=== PATIENT | male | born 1945 | race Caucasian/White ===

== ENCOUNTER 2025-05-21 05:53 | Emergency (ER) | payer OTHER ==
[2025-05-21] MEDS ORDERED: Ondansetron PF 4 MG/2 ML Vial ONE (06:49)
[2025-05-21 06:58] LABS: Hematocrit 40.4 % (42.0-52.0); Hemoglobin 12.0 g/dL (14.0-18.0); Mean Corpuscular Hemoglobin 29.9 pg (27.0-31.0); Mean Corpuscular Volume 101.0 fl (78.0-98.0); Platelet Count 240 10x3/uL (130-400); Red Blood Cell (RBC) Count 4.00 mill/uL (4.70-6.10); White Blood Cell (WBC) Count 5.4 10x3/uL (4.8-10.8)
[2025-05-21] MEDS ORDERED: Amoxicillin/Potassium Clav 875 MG TAB ONE (07:03)
[2025-05-21 07:06] LABS: Anion Gap 16 mmol/L (10-20); Anisocytosis SLIGHT = 6-15 cells (100X) (0-5/hpf); BUN (Urea Nitrogen) 11 mg/dL (8.4-25.7); Calc. Creatinine Clearance 0 mL/min (70-130); Calcium 8.5 mg/dL (7.8-10.44); Carbon Dioxide 22 mmol/L (23-31); Chloride 108 mmol/L (98-107); Glucose 104 mg/dL (83-110); MDiff Complete? YES; Macrocytosis SLIGHT = 6-15 cells (100X) (0-5/hpf); Manual Diff?? YES; Potassium 3.7 mmol/L (3.5-5.1); Sodium 142 mmol/L (136-145)
[2025-05-21 07:07] LABS: Platelet Adequacy Comment Appears Adequate
== END 2025-05-21 07:40 | disposition home or self-care (01) ==
LOC: MADERS 05:53
DX: K57.32 Diverticulitis of large intestine without perforation or abscess without bleeding (principal); I10 Essential (primary) hypertension; E78.5 Hyperlipidemia, unspecified; E66.9 Obesity, unspecified; Z79.899 Other long term (current) drug therapy
CPT/HCPCS: 36415; 74176; 80048; 85025; 96374; 96375; J2270; J2405; J7030

== ENCOUNTER 2025-05-28 08:46 | Emergency (ER) | payer OTHER ==
[2025-05-28] MEDS ORDERED: Iopamidol 370 76% 100 ML VIAL ONE (09:00)
[2025-05-28] MEDS ORDERED: Orphenadrine Citrate 60 MG/2 ML VIAL ONE (09:59)
[2025-05-28 10:14] LABS: #Basophils 0.0 thou/uL (0.0-0.2); #Eosinophils 0.1 thou/uL (0.0-0.7); #Lymphocytes 0.7 thou/uL (1.20-3.40); #Monocytes 0.4 thou/uL (0.11-0.59); #Neutrophils 1.9 thou/uL (1.40-6.50); %Basophils 1.5 % (0.0-1.0); %Eosinophils 4.2 % (0.0-10.0); %Lymphocytes 22.7 % (21.0-51.0); %Monocytes 11.0 % (0.0-10.0); %Neutrophils 60.7 % (42.0-75.0); Hematocrit 43.5 % (42.0-52.0); Hemoglobin 12.9 g/dL (14.0-18.0); Mean Corpuscular Hemoglobin 29.1 pg (27.0-31.0); Mean Corpuscular Volume 98.4 fl (78.0-98.0); Platelet Count 239 10x3/uL (130-400); Red Blood Cell (RBC) Count 4.42 mill/uL (4.70-6.10); White Blood Cell (WBC) Count 3.2 10x3/uL (4.8-10.8)
[2025-05-28 10:46] LABS: ALT (SGPT) 18 U/L (Less than 45); AST (SGOT) 34 U/L (11-34); Albumin 2.8 g/dL (3.1-4.5); Alkaline Phosphatase 64 U/L (40-110); Anion Gap 15 mmol/L (10-20); BUN (Urea Nitrogen) 10 mg/dL (8.4-25.7); Bilirubin, Total 0.2 mg/dL (0.3-1.2); Calc. Creatinine Clearance 0 mL/min (70-130); Calcium 8.3 mg/dL (7.8-10.44); Carbon Dioxide 19 mmol/L (23-31); Chloride 108 mmol/L (98-107); Globulin 3.2 g/dL (2.4-3.5); Glucose 114 mg/dL (83-110); Lipase 25 U/L (8-78); Magnesium 1.9 mg/dL (1.6-2.6); Potassium 4.1 mmol/L (3.5-5.1); Sodium 138 mmol/L (136-145)
[2025-05-28] MEDS ORDERED: Diphenoxylate HCl/Atropine Tablet ONE (11:21)
[2025-05-28] MEDS ORDERED: Ketorolac Tromethamine 30 MG (1 mL) VIAL ONE (11:21)
[2025-05-28] MEDS ORDERED: metroNIDAZOLE 500 MG (100 mL) BAG ONE (13:20)
== END 2025-05-28 13:35 | disposition short-term general hospital (02) ==
LOC: MADERS 08:46
DX: S39.012A Strain of muscle, fascia and tendon of lower back, initial encounter (principal); J45.901 Unspecified asthma with (acute) exacerbation; R19.7 Diarrhea, unspecified; E86.0 Dehydration; I10 Essential (primary) hypertension; Z79.899 Other long term (current) drug therapy; X58.XXXA Exposure to other specified factors, initial encounter
CPT/HCPCS: 74177; 80053; 83605; 83690; 83735; 83880; 85025; 96374; 96375; J1885; J2360; J2919; J7030; Q9967